=== PATIENT | male | born 1955 ===

== ENCOUNTER 2019-10-13 20:12 | Emergency (ER) | payer SELFPAY ==
[~2019-10-13] VITALS: Ht 172.7 cm; Wt 71.4 kg
[2019-10-13 20:21] VITALS: Ht 172.7 cm; Wt 71.4 kg
[2019-10-13 22:28] VITALS: BP 104/65
== END 2019-10-13 22:29 | disposition home or self-care (01) ==
LOC: D.ER 20:12
DX: K94.23 Gastrostomy malfunction (principal); K21.9 Gastro-esophageal reflux disease without esophagitis; I10 Essential (primary) hypertension; Z72.0 Tobacco use